=== PATIENT | male | born 1940 | race Caucasian/White ===

== ENCOUNTER 2024-04-11 13:53 | Outpatient (RCR) | payer MEDICARE, BC, SELFPAY ==
--- NOTE | 2024-04-16 22:52 | CTCFLWUP_ITS ---
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 Rooney received weekly Taxol and carboplatin as radiose nsitizing agents. 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 Rooney is allergic to MRI contrast. He had anaphylactic reaction in the past. REASON FOR TODAY?S VISIT: This is office follow-up visit. Mr. Rooney is here at [facility]. He is clinically doing very well. Denies any new complaints. Denies any cough , chest pain, abdominal pain or leg cramps. Currently he is on adjuvant durvalumab. Tolerating it v [facility] well without any significant side effects. Has good appetite and good energy levels. Ambulating well without any help. HISTORY OF PRESENT ILLNESS: Mr. Rooney has the following oncology history. September 2014: Mr. Rooney had excision biopsy of the lesion on the back of the chest wall on the right side . 01/2015: CT scan of the chest with IV contrast 02/05/2015: Radical reresection of the large (8 cm) right periscapular leiomyosarcoma. 03/18/2015 - 05/10/2015: Patient was treated with 7040 cGy radiation therapy to the right shoulder. 04/02/2016: Mr. Rooney had gastroscope and radial echo endoscopic study to evaluate compression of the prepyloric region. 11/04/2022: CT scan of the chest without IV contrast was obtained due to history of soft tissue sarcom a. 12/10/2022: Guided biopsy of the left lower lobe pulmonary mass? 01/18/2023?02/22/2023: Mr. Rooney is started on chemoradiation with weekly Taxol and carboplatin for sta ge IIIa disease. 03/23/2023: Mr. Rooney is started on adjuvant durvalumab. 05/26/2023: PET/CT scan 09/16/2023: PET/CT scan? PAST MEDICAL HISTORY: COPD Sarcoma right shoulder - Dx 2014 BPH PAST SURGICAL HISTORY: Septoplasty - 2014 Umbilical hernia repair - 2005 MEDICATIONS: 1. albuterol - 90 mcg/actuation As needed 2. multivitamin - 1 tab Daily 3. Trelegy Ellipta - 200-62.5-25 mcg 1 Puff(s) Daily 4. vitamin B complex - 1 tab Every other day 5. Vitamin C - 1,000 mg 1 tab Daily?Palabra Meds? Medications Last Reconciled by Jazzy Ordonez MA on 12/30/2023 ALLERGIES: Gadolinium-Containing Contrast Media; Gadolinium-Containing Contrast Media; Gadolinium-Con taining Contrast Media REVIEW OF SYSTEMS:?Clone ROS? Neurological: No headache, seizures or blurring of vision. Gastrointestinal: No nausea, vomiting, diarrhea or constipation. Cardiovascular: No palpitations or angina pains. Respiratory: No cough, chest pain or shortness of breath. PHYSICAL EXAMINATION:?ClonePE? VITAL SIGNS: Temperature?98.8, B/P?119/74, Oxygen?Saturation?96% Weight?159?lbs (Change?since?12/29/23: ?2.2?lbs) PAIN: 0 - No pain EYE: Conjunctivae is white MOUTH: Oral cavity is dry. CHEST: Clear to auscultation. No wheezes or rales audible. CARDIAC: Rhythm regular, no murmurs or gallops present. ABDOMEN: Soft. No hepatosplenomegaly. EXTREMITIES: No pedal edema or cyanosis. 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 History of right pe riscapular leiomyosarcoma (2014, s/p surgery and radiation therapy. S/p chemoradiation completed on . 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 Tolerating it very well without any significant side effects. CT scan of the neck with and without contrast done on 10/13/2023 did not show any enhancing oropharyng eal mass. Patient states that his PET CT scan showed a large hypermetabolic mass and at that time he was sent t o be seen by ENT . He was examined and no mass was found. Really subsequently his next CT scan wa s negative. He apparently took some gum which he thinks might have made his PET scan positive. 04/06/[address] scan shows stable hypermetabolic mass in the left oropharyngeal region Large cavitary partially hypermetabolic mass in the right upper lobe 52 mm compared to 28 mm and stab le 17 mm non-hypermetabolic cavitary mass left upper lobe Plan Refer to IR for biopsy PFT Refer to oral surgeon for examination to evaluate oropharyngeal mass Return to clinic after the biopsy results Will also get a brain MRI to complete staging 1. Electronically Signed by: {Object.Sanct_ID*PnP.NameFL@M}, {Object.Sanct_ID*PnP.Suffix@U} D: {Object.Sanct_Date} T: {Object.Sanct_Time} CC: PCP: Geovanna Samson Referring: Geovanna Samson This document was completed utilizing speech recognition software. Grammatical errors, random word in sertions, pronoun errors, and incomplete sentences are an occasional consequence of this system due t o software limitations, ambient noise, and hardware issues. Any formal questions or concerns about th e content, text or information contained within the body of this dictation should be directly address ed to the provider for clarification.
== END 2024-04-22 23:59 | disposition home or self-care (01) ==
LOC: SCTC 13:53
PROVIDERS: Referring Provider Internal Medicine Hematology & Oncology; Visit Provider Internal Medicine Hematology & Oncology
DX: C34.32 Malignant neoplasm of lower lobe, left bronchus or lung (principal); Z85.831 Personal history of malignant neoplasm of soft tissue; Z92.3 Personal history of irradiation
CPT/HCPCS: 99212; G0463

== ENCOUNTER 2024-04-26 07:39 | Outpatient (CLI) | payer MEDICARE, BC, SELFPAY ==
[2024-04-25 13:30] LABS: Basophils % (Auto) 0 % (0-2.5); Eosinophils # (Auto) 0.3 Thou/mm3 (0.0-0.5); Eosinophils % (Auto) 3 % (0-10); Hematocrit 39.9 % (41.0-53.0); Immature Granulocytes % (Auto) 1 % (0-0); Lymphocytes # (Auto) 1.5 Thou/mm3 (1.0-4.8); Lymphocytes % (Auto) 12 % (10-50); Mean Corpuscular HGB Conc 32.6 g/dl (31.0-37.0); Mean Corpuscular Hemoglobin 30.4 pg (25.0-35.0); Mean Corpuscular Volume 93 fL (80-100); Monocytes # (Auto) 1.3 Thou/mm3 (0.0-0.8); Monocytes % (Auto) 11 % (0-12); Neutrophils # (Auto) 9.2 Thou/mm3 (1.8-7.7); Neutrophils % (Auto) 74 % (37-80); Nucleated Red Blood Cell % 0 /100 WBC (0); Platelet Count 294 Thou/mm3 (140-440); RDW Standard Deviation 43.8 fL (35.1-43.9); Red Blood Count 4.28 Miln/mm3 (4.50-5.90); White Blood Count 12.5 Thou/mm3 (3.8-10.6)
[2024-04-25 13:37] LABS: Partial Thromboplastin Time 26.5 Seconds (22.0-36.0); Prothrombin Time 10.6 Seconds (9.0-12.2)
[2024-04-25 13:43] LABS: Blood Urea Nitrogen 15 mg/dL (9-23); Creatinine (Component) 1.2 mg/dL (0.6-1.3); eGFR > 60 See Note
[2024-04-26] VITALS (12 sets, daily range): BP systolic 103–130; BP diastolic 63–84; PULSE 90–114; RESP 13–22; TEMP 36.6–36.7; O2SAT 92–96
--- NOTE | 2024-04-26 | XR_ITS ---
Examination: AP chest single view Technique one AP semiupright portable chest single view Exam date and time: April 26, 2024 1146 hours INDICATIONS: Post lung biopsy today. FINDINGS: No pneumothorax post lung biopsy Parenchymal disease in the right lung with bilateral pulmonary nodules again noted IMPRESSION: No pneumothorax post lung biopsy
--- NOTE | 2024-04-26 08:30 | XR_ITS ---
Examination: CT-guided percutaneous biopsy cavitary lesion right upper lobe CT chest without intravenous contrast Date and time of procedure: April 26, 2024 10:16 AM INDICATIONS: Large cavitary mass in the right upper lobe and numerous bilateral pulmonary nodules on CT chest study today Informed consent provided. A timeout was completed verifying correct patient, procedure, site and positioning. Technique: Axial 3 mm sections were obtained for localization of the large cavitary mass right upper lobe Appropriate area is marked. The patient's site was prepped and draped in sterile fashion Maximal sterile barrier technique utilized, including hand hygiene Local anesthesia was obtained with 1% lidocaine. Low dose protocols were performed. One or more of the following dose reduction techniques were used; automated exposure control, adjustment of the mA and/or KV according to patient size, use of iterative reconstruction technique. Utilizing CT fluoroscopic guidance 7 core biopsies obtained of the cavitary mass in the right upper lobe, including 8 core placed in culture medium for culture and sensitivity Complete pathology report to follow. Impression: Successful CT-guided percutaneous biopsy cavitary mass right upper lobe
--- NOTE | 2024-04-26 09:51 | XR_ITS ---
Examination: CT chest, without intravenous contrast. Sagittal and coronal 2-D reconstructions. Exam date and time: April 26, 2024 0956 hours INDICATIONS: Cavitary lung lesion right upper lobe [address] scan April 06, 2024, diagnosis skin cancer CTDI:vol (mGy) 9.70 DLP: (mGycm) 363 Technique: Multiple 3.0 mm axial sections of the chest to been obtained. Bone and lung density settings are obtained. Sagittal and coronal 2-D reconstructions have been obtained. Low dose protocols were performed. One or more of the following dose reduction techniques were used; automated exposure control, adjustment of the mA and/or KV according to patient size, use of iterative reconstruction technique. Findings: Partially cavitary mass in the right upper lobe, at least 8 x 3 x 6.2 cm Extensive parenchymal scarring in the right lower lung zone Dilated bronchi in both lungs Numerous bilateral pulmonary nodules including cavitary nodule in the left midlung measuring 21 mm No visualized liver lesions Gallstones not seen Spleen not enlarged Kidneys partially visualized no hydronephrosis IMPRESSION: Multiple bilateral pulmonary masses, several cavitary, the largest in the right upper lobe 8 x 3 x 6.2 cm
[2024-04-26] MEDS: fentaNYL CIT INJ 50 mCg/ML AMP 2ML IV (10:49)
--- NOTE | 2024-04-26 11:10 | PC.NURSE ---
1110 patient is awake, alert, breathing unlabored, s/p right lung biopsy, dressing to right upper chest near axilla dry with no bleeding, report received from Devonte RIDDLE, patient to have chest xray now and second xray 1 hr post first chest xray.
--- NOTE | 2024-04-26 11:40 | PC.NURSE ---
1140 chest xray completed, order placed for second xray in 1hr
[2024-04-26 11:57] LABS: Cult AFB Sendout- Not Sputum* See Sep Rpt
--- NOTE | 2024-04-26 12:22 | PC.NURSE ---
No pneumothorax per Dr. Reddy, penny for patient to have diet tray that was ordered, pt does not want food at this time.
--- NOTE | 2024-04-26 12:40 | XR_ITS ---
Examination: AP chest single view Technique one AP upright portable chest single view Exam date and time: April 26, 2024 1247 hours INDICATIONS: Post lung biopsy today. FINDINGS: No pneumothorax post lung biopsy Bilateral pulmonary masses noted with parenchymal disease in the right mid and lower lung zone Normal heart size IMPRESSION: No pneumothorax post lung biopsy
--- NOTE | 2024-04-26 12:42 | PC.NURSE ---
second chest xray completed
--- NOTE | 2024-04-26 13:52 | PC.NURSE ---
1310 patient is awake, alert, breathing unlabored, dressing to right upper chest dry with no bleeding, discharge instructions given to patient and Angelia, meets discharge criteria, second chest xray ready by dr flores, no pneumothorax seen, ok to discharge patient home, patient discharged home in wheelchair with all belongings.
--- NOTE | 2024-04-26 13:57 | PC.NURSE ---
1300 Dr. Reddy read second xray, no pneumothorax seen on images, will get patient ready to go home
== END 2024-04-26 13:10 | disposition home or self-care (01) ==
PROVIDERS: Radiology Diagnostic Radiology; PCP Family Medicine; Referring Provider Internal Medicine Hematology & Oncology; Visit Provider Internal Medicine Hematology & Oncology
DX: J84.10 Pulmonary fibrosis, unspecified (principal); R91.8 Other nonspecific abnormal finding of lung field; C44 Other and unspecified malignant neoplasm of skin; C43.31 Malignant melanoma of nose; Z01.812 Encounter for preprocedural laboratory examination
CPT/HCPCS: 32408; 36415; 71250; 77012; 82565; 84520; 85025; 85610; 85730; 87070; 87075; 87102; 87116; 87205; 87206; J3010; J7050

== ENCOUNTER 2024-05-04 15:30 | Outpatient (RCR) | payer MEDICARE, BC, SELFPAY ==
--- NOTE | 2024-05-04 16:38 | CTCFLWUP_ITS ---
Patient: SLOAN ROONEY : 1940 Page 2 of 2 FOLLOW UP NOTE DATE OF SERVICE: 05/04/2024 NAME: SLOAN ROONEY ACCOUNT: [id number] : 1940 AGE: 83 REASON FOR VISIT: Follow-up INTERVAL HISTORY: Patient is here to follow-up on the history of squamous cell lung cancer. Patient's last PET CT scan was concerning for activity in the throat and distress ordered for biopsy. Patient is here to discu ss the biopsy results. Patient doing well there is no changes in his appetite or weight. No chronic cough weight loss or any concerning symptoms for recurrence of cancer. History of presenting illness Mr. Rooney has the following oncology history. September 2014: Mr. Rooney had excision biopsy of the lesion on the back of the chest wall on the right side . 01/2015: CT scan of the chest with IV contrast 02/05/2015: Radical reresection of the large (8 cm) right periscapular leiomyosarcoma. 03/18/2015 - 05/10/2015: Patient was treated with 7040 cGy radiation therapy to the right shoulder. 04/02/2016: Mr. Rooney had gastroscope and radial echo endoscopic study to evaluate compression of the prepyloric region. 11/04/2022: CT scan of the chest without IV contrast was obtained due to history of soft tissue sarcom a. 12/10/2022: Guided biopsy of the left lower lobe pulmonary mass? 01/18/2023?02/22/2023: Mr. Rooney is started on chemoradiation with weekly Taxol and carboplatin for sta ge IIIa disease. 03/23/2023: Mr. Rooney is started on adjuvant durvalumab. 05/26/2023: PET/CT scan 09/16/2023: PET/CT scan? 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 Rooney received weekly Taxol and carboplatin as radiose nsitizing agents. 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 Rooney is allergic to MRI contrast. He had anaphylactic reaction in the past. DATE OF DIAGNOSIS: STAGE/TNM: TREATMENT HISTORY: Care?Plan Start?Date Cycle Day Intent Taxol?45?mg/m*2?+?Carbo?AUC?2?+?Concurrent?XRT 01/18/2023 1 7 Definitive DURValomab?10mg/kg 03/23/2023 1 14 Curative?(adjuvant) OTHER MEDICAL HISTORY/CONDITIONS: COPD Sarcoma right shoulder - Dx 2014 BPH Septoplasty - 2014 Umbilical hernia repair - 2005 FAMILY HISTORY: Mother:?Thyroid?-?dx?60's Children:?Sister?-?Lung?-?80's SOCIAL HISTORY: Occupational?History:?Retired?- Education?Level:?College Graduate, 2 year degree Marital?Status:? Tobacco?Pack?per?Day:?1 Tobacco?Use?Years:?60 Tobacco?Use:?Quit?2?weeks?ago ETOH?Use:?Denies Drug?Note:?Denies Social?History?Note:?Lives?with? MEDICATIONS: 1. albuterol - 90 mcg/actuation As needed 2. multivitamin - 1 tab Daily 3. Trelegy Ellipta - 200-62.5-25 mcg 1 Puff(s) Daily 4. vitamin B complex - 1 tab Every other day 5. Vitamin C - 1,000 mg 1 tab Daily Medications Last Reconciled by Yoli Reich MD on 05/04/2024 ALLERGIES: Gadolinium-Containing Contrast Media; Gadolinium-Containing Contrast Media; Gadolinium-Con taining Contrast Media REVIEW OF SYSTEMS: A complete 14-point review of systems was performed and is negative except as noted in interval histo ry. PHYSICAL EXAMINATION: VITAL SIGNS: Temperature?99.8, B/P?131/73, Oxygen?Saturation?97% Weight?108?lbs (Change?since? 4:?-50?lbs) PAIN: 0 - No pain ECOG Performance Status: 0 - Asymptomatic and fully active EYE: Conjunctivae is white MOUTH: Oral cavity is moist CHEST: Clear to auscultation. No wheezes or rales audible. CARDIAC: Rhythm regular, no murmurs or gallops present. ABDOMEN: Soft. No hepatosplenomegaly. EXTREMITIES: No pedal edema or cyanosis. LABORATORY DATA: I have personally reviewed and interpreted each of the patient?s relevant lab tests, abnormal finding s are below: Date 04/25/24 ??WHITE?BLOOD?COUNT?(Thou/mm3) 12.5?H ??RED?BLOOD?COUNT?(Miln/mm3) 4.28?L ??HEMOGLOBIN?(gm/dl) 13.0?L ??HEMATOCRIT?(%) 39.9?L ??PLATELET?COUNT?(Thou/mm3) 294 ??NEUTROPHILS?%,?AUTO?(%) 74 ??LYMPH?%,?AUTO?(%) 12 ??NEUTROPHILS,?AUTO?(Thou/mm3) 9.2?H IMPRESSION/PLAN: #1 stage Illa (cT2b, N2, M0) squamous cell carcinoma of the right lung (12/10/2022). S/p S/p chemorad iation completed on 03/01/2023. Followed by durvalumab CT scan of the neck with and without contrast done on 10/13/2023 did not show any enhancing oropharyng eal mass. 04/06/[address] scan shows stable hypermetabolic mass in the left oropharyngeal region Large cavita ry partially hypermetabolic mass in the right upper lobe 52 mm compared to 28 mm and stable 17 mm non -hypermetabolic cavitary mass left upper lobe. Biopsy shows caseating granuloma and negative for tuberculosis and any fungal elements and malignancy This is likely from radiation associated changes Will check cocci titers and QuantiFERON RTC in 2 months Patient have oral surgeon appointment for evaluation of the mass in his throat. ORDERS: Cocci titers serum QuantiFERON ordered #2 history of right periscapular leiomyosarcoma (2014, s/p surgery and radiation therapy. Gastric GIS T (December 2015) No evidence of recurrence RETURN TO CLINIC: RTC in 4 weeks BILLING AND COMPLIANCE: I reviewed external records from providers outside my specialty as summarized above. I spent a total of 50 minutes on this patient?s care on the day of their visit excluding time spent related to any bi lled procedures. This time includes time spent with the patient as well as time spent documenting in the medical record, reviewing patients records and tests, obtaining history, placing orders, communi cating with other healthcare professionals, counseling the patient, family or caregiver, and/or care coordination for the diagnoses above. Electronically Signed by: Yonny Scott MD T: 4:36 PM CC: PCP: Geovanna Samson Referring: Geovanna Samson This document was completed utilizing speech recognition software. Grammatical errors, random word in sertions, pronoun errors, and incomplete sentences are an occasional consequence of this system due t o software limitations, ambient noise, and hardware issues. Any formal questions or concerns about th e content, text or information contained within the body of this dictation should be directly address ed to the provider for clarification.
== END 2024-05-23 23:59 | disposition home or self-care (01) ==
LOC: SCTC 15:30
PROVIDERS: PCP Family Medicine; Referring Provider Family Medicine; Visit Provider Internal Medicine Hematology & Oncology
DX: C34.32 Malignant neoplasm of lower lobe, left bronchus or lung (principal); Z85.831 Personal history of malignant neoplasm of soft tissue; Z92.3 Personal history of irradiation; Z85.028 Personal history of other malignant neoplasm of stomach
CPT/HCPCS: 99213; G0463

== ENCOUNTER → 2024-05-05 | Outpatient (CLI) | payer MEDICARE, BC, SELFPAY ==
[2024-05-05 14:05] LABS: Cocci Serology, IgM Negative (Negative)
[2024-05-06 14:10] LABS: Cocci Serology, IgG Negative (Negative)
== END | disposition home or self-care (01) ==
LOC: SCTO 11:50
PROVIDERS: PCP Family Medicine; Referring Provider Internal Medicine Hematology & Oncology; Visit Provider Internal Medicine Hematology & Oncology
DX: C44 Other and unspecified malignant neoplasm of skin (principal); C34.31 Malignant neoplasm of lower lobe, right bronchus or lung
CPT/HCPCS: 36415; 86331; 86635

== ENCOUNTER → 2024-05-12 | Outpatient (CLI) | payer MEDICARE, BC, SELFPAY | END | disposition home or self-care (01) | LOC: SMRI 12:48 | PROVIDERS: PCP Family Medicine; Referring Provider Internal Medicine Hematology & Oncology; Visit Provider Internal Medicine Hematology & Oncology | DX: Z53.8 Procedure and treatment not carried out for other reasons (principal) ==

== ENCOUNTER → 2024-05-16 | Outpatient (CLI) | payer MEDICARE, BC, SELFPAY ==
--- NOTE | 2024-05-16 15:30 | XR_ITS ---
Examination: MRI brain without intravenous contrast. Date and time of exam: May 16, 2024 at 1626 hrs. Indications: Diagnosis malignant neoplasm lung, restaging Technique: Multiple axial and sagittal images of the brain obtained. Siemens high-resolution 1.5 Izabel short bore scanners utilized. Sagittal sections, T1-weighted, TR 500, TE 14, are performed. Axial sections proton-density and T2-weighted have been obtained. Inversion recovery axial images, TR 9, 260, TE 111, TI 2500. Diffusion weighted images, axial sections, TR 4800, TE 128, B value 1000 Axial sections, ADC map, TR 4800, TE 128 Findings: Enlargement of the sella turcica is not present. The optic chiasm and infundibular are not remarkable. Prepontine and interpeduncular cisterns are not enlarged. There is no localized enlargement of the medulla or ventura. Fourth ventricle and cerebellar tonsils appear normal in position. No subacute area of hemorrhage density is seen. Mass in the cerebellopontine angle region is not evident. Globes symmetrical. Orbital musculature including medial lateral rectus muscles do not exhibit abnormality. Diffusion-weighted images demonstrate no focus of restricted diffusion. Increased white matter signal moderate Right mastoiditis Mass effect upon the ventricular system is not identified. Impression: No focal cerebellar or cerebral metastatic lesion noted
== END | disposition home or self-care (01) ==
LOC: SMRI 14:58
PROVIDERS: PCP Family Medicine; Referring Provider Internal Medicine Hematology & Oncology; Visit Provider Internal Medicine Hematology & Oncology
DX: C44 Other and unspecified malignant neoplasm of skin (principal); C34.31 Malignant neoplasm of lower lobe, right bronchus or lung
CPT/HCPCS: 70551

== ENCOUNTER 2024-07-19 14:21 | Outpatient (RCR) | payer MEDICARE, SELFPAY ==
[2024-07-19 15:42] LABS: Basophils % (Auto) 0 % (0-2.5); Eosinophils # (Auto) 0.4 Thou/mm3 (0.0-0.5); Eosinophils % (Auto) 4 % (0-10); Hematocrit 36.2 % (41.0-53.0); Hemoglobin 11.8 g/dL (13.5-16.0); Immature Granulocytes % (Auto) 0 % (0-0); Immature Granulocytes Auto 0.04 Thou/mm3 (0.00-0.00); Lymphocytes # (Auto) 1.1 Thou/mm3 (1.0-4.8); Lymphocytes % (Auto) 11 % (10-50); Mean Corpuscular HGB Conc 32.6 g/dl (31.0-37.0); Mean Corpuscular Hemoglobin 29.1 pg (25.0-35.0); Mean Corpuscular Volume 89 fL (80-100); Monocytes # (Auto) 1.1 Thou/mm3 (0.0-0.8); Monocytes % (Auto) 11 % (0-12); Neutrophils # (Auto) 6.9 Thou/mm3 (1.8-7.7); Neutrophils % (Auto) 73 % (37-80); Nucleated Red Blood Cell % 0 /100 WBC (0); Platelet Count 268 Thou/mm3 (140-440); RDW Standard Deviation 44.9 fL (35.1-43.9); Red Blood Count 4.06 Miln/mm3 (4.50-5.90); White Blood Count 9.5 Thou/mm3 (3.8-10.6)
[2024-07-19 16:03] LABS: Alanine Aminotransferase 9 U/L (10-49); Albumin, Serum 4.1 gm/dL (3.4-4.8); Albumin/Globulin Ratio 1.4 (1.2-2.2); Alkaline Phosphatase 93 U/L (46-116); Anion Gap 8 (7-16); Aspartate Amino Transferase 15 U/L (0-34); BUN/Creatinine Ratio 12 Ratio (12-20); Bilirubin,Total 0.4 mg/dL (0.3-1.2); Blood Urea Nitrogen 12 mg/dL (9-23); Calcium 9.5 mg/dL (8.3-10.6); Calcium (Corrected) 9.5 mg/dL (8.5-10.1); Carbon Dioxide 26.7 mMol/L (20.0-31.0); Chloride 105 mMol/L (98-107); Globulin 2.9 gm/dL (2.3-3.5); Glucose 104 mg/dL (74-106); Osmolality,Calculated 279 (275-295); Potassium 3.9 mMol/L (3.4-5.1); Sodium 140 mMol/L (136-145); eGFR > 60 See Note
== END 2024-07-21 23:59 | disposition home or self-care (01) ==
LOC: SCTC 14:21
PROVIDERS: Internal Medicine Hematology & Oncology; PCP Family Medicine; Referring Provider Family Medicine; Visit Provider Radiology Therapeutic Radiology
DX: C34.32 Malignant neoplasm of lower lobe, left bronchus or lung (principal); R22.1 Localized swelling, mass and lump, neck; Z85.831 Personal history of malignant neoplasm of soft tissue; Z92.3 Personal history of irradiation; Z92.21 Personal history of antineoplastic chemotherapy
CPT/HCPCS: 36591; 80053; 85025; 99212; A4216; J1642; G0463

== ENCOUNTER → 2024-07-20 | Outpatient (CLI) | payer MEDICARE, BC, SELFPAY ==
--- NOTE | 2024-07-20 14:00 | XR_ITS ---
Examination: CT chest with intravenous contrast 2-D sagittal and coronal reconstructions Exam date and time: July 20, 2024 1444 hrs. Indications: Lung carcinoma diagnosis 2 years ago, cavitary mass right upper lobe 8.3 x 6.[address] chest April 26, 2024 restaging CTDI:vol (mGy) 8.52 DLP: (mGycm) : 15 Technique: Multiple axial sections of the thorax have been obtained. Sections have been obtained, 3 mm slice thickness. Mediastinal and lung density settings have been obtained. Intravenous contrast administered, 60 cc Isovue-370 . 2-D sagittal, coronal images obtained. Low dose protocols were performed. One or more of the following dose reduction techniques were used; automated exposure control, adjustment of the mA and/or KV according to patient size, use of iterative reconstruction technique. Findings: No thoracic aortic aneurysmal dilatation No pulmonary artery emboli Small lymph nodes in the precarinal region COPD Significant cavitary lesion right upper lobe, 5.7 cm compared to 6.2 cm on the prior study Larger sagittal 0, 18 mm compared to 9 mm New satellite pulmonary nodules in the right upper lobe 20 mm mass in the left upper lobe is now cavitary Pulmonary fibrosis especially in the right lung moderately severe Gallstones No solid liver lesions No pancreatic mass Impression: Progression of metastatic pulmonary nodular disease in the right upper lobe compared to April 26, 2024
== END | disposition home or self-care (01) ==
LOC: CCTX 13:59
PROVIDERS: PCP Family Medicine; Referring Provider Internal Medicine Hematology & Oncology; Visit Provider Internal Medicine Hematology & Oncology
DX: C78.01 Secondary malignant neoplasm of right lung (principal); C44 Other and unspecified malignant neoplasm of skin; C34.31 Malignant neoplasm of lower lobe, right bronchus or lung
CPT/HCPCS: 71260; A4649; Q9967

== ENCOUNTER 2024-07-27 15:00 | Outpatient (RCR) | payer MEDICARE, BC, SELFPAY ==
--- NOTE | 2024-07-27 16:18 | CTCFLWUP_ITS ---
[facility] [address] [place], [place] [address] FOLLOW-UP NOTE Date: 07/27/2024 MR#: [id number] Name: SLOAN ROONEY : 1940 Dx: C44.691 Other specified malignant neoplasm of skin of unspecified upper limb, including shoulder C34.31 Malignant neoplasm of right lower lobe. Patient with stage IIIa squamous is he had a right lung biopsy 12/28/2022 Underwent chemoradiation 01/18/2023 to 03/01/2023 receiving weekly Taxol carboplatin and 5800 cGy to the right chest. followed by durvalumab. PET scan 04/06/2024 showed stable mass left oropharyngeal region with larger cavitary partially hypermetabolic mass in the right upper lobe and stable 17 mm non-hypermetabolic cavitary mass left upper lobe. CT-guided needle biopsy of the right lung lesion 04/26/2024 was negative for malignancy..This revealed caseating granulomas inflammation negative for malignancy. Cocci titers negative and TB test reportedly was normal as well. Also patient went to [place] and had ENT exam to evaluate the oropharyngeal region and surrounding area and fungal infection was reported and treated but no malignancy. Most recent CT 07/20/2024 showed progression of pulmonary nodules right upper lobe compared to 04/26/2024. Reviewed the films with Dr. Aldridge who feels that either the 18 mm lesion order larger cavitary lesion right upper lobe can be biopsied to rule out active malignancy. This will now be ordered. Has follow-up with Dr. Scott next month. Electronically signed by: Rogelio Peralta M.D. 07/27/2024 4:16 PM
== END 2024-08-21 23:59 | disposition home or self-care (01) ==
LOC: SCTC 15:00
PROVIDERS: PCP Family Medicine; Referring Provider Family Medicine; Visit Provider Radiology Therapeutic Radiology
DX: C34.32 Malignant neoplasm of lower lobe, left bronchus or lung (principal); J84.10 Pulmonary fibrosis, unspecified; R91.8 Other nonspecific abnormal finding of lung field; Z85.831 Personal history of malignant neoplasm of soft tissue; Z92.3 Personal history of irradiation; Z92.21 Personal history of antineoplastic chemotherapy
CPT/HCPCS: 99213; G0463

== ENCOUNTER 2024-09-15 09:30 | Outpatient (RCR) | payer MEDICARE, BC, SELFPAY ==
[2024-09-15 11:03] LABS: Basophils % (Auto) 0 % (0-2.5); Eosinophils # (Auto) 0.3 Thou/mm3 (0.0-0.5); Eosinophils % (Auto) 2 % (0-10); Hematocrit 37.6 % (41.0-53.0); Hemoglobin 12.5 g/dL (13.5-16.0); Immature Granulocytes % (Auto) 1 % (0-0); Immature Granulocytes Auto 0.09 Thou/mm3 (0.00-0.00); Lymphocytes # (Auto) 1.4 Thou/mm3 (1.0-4.8); Lymphocytes % (Auto) 11 % (10-50); Mean Corpuscular HGB Conc 33.2 g/dl (31.0-37.0); Mean Corpuscular Hemoglobin 29.8 pg (25.0-35.0); Mean Corpuscular Volume 90 fL (80-100); Monocytes # (Auto) 1.3 Thou/mm3 (0.0-0.8); Monocytes % (Auto) 10 % (0-12); Neutrophils % (Auto) 76 % (37-80); Nucleated Red Blood Cell % 0 /100 WBC (0); Platelet Count 256 Thou/mm3 (140-440); RDW Standard Deviation 47.5 fL (35.1-43.9); Red Blood Count 4.19 Miln/mm3 (4.50-5.90); White Blood Count 13.1 Thou/mm3 (3.8-10.6)
[2024-09-15 11:17] LABS: Partial Thromboplastin Time 29.1 Seconds (22.0-36.0); Prothrombin Time 10.6 Seconds (9.0-12.2)
[2024-09-15 11:37] LABS: Alanine Aminotransferase 9 U/L (10-49); Albumin/Globulin Ratio 1.7 (1.2-2.2); Alkaline Phosphatase 82 U/L (46-116); Anion Gap 8 (7-16); Aspartate Amino Transferase 10 U/L (0-34); BUN/Creatinine Ratio 13 Ratio (12-20); Bilirubin,Total 0.3 mg/dL (0.3-1.2); Blood Urea Nitrogen 14 mg/dL (9-23); Calcium 9.1 mg/dL (8.3-10.6); Calcium (Corrected) 9.1 mg/dL (8.5-10.1); Carbon Dioxide 30.2 mMol/L (20.0-31.0); Chloride 107 mMol/L (98-107); Creatinine (Component) 1.1 mg/dL (0.6-1.3); Globulin 2.3 gm/dL (2.3-3.5); Glucose 111 mg/dL (74-106); Osmolality,Calculated 290 (275-295); Potassium 3.2 mMol/L (3.4-5.1); Sodium 145 mMol/L (136-145); Total Protein 6.3 gm/dL (5.7-8.2); eGFR > 60 See Note
== END 2024-09-20 23:59 | disposition home or self-care (01) ==
LOC: SCTC 09:30
PROVIDERS: Referring Provider Internal Medicine Hematology & Oncology; Visit Provider Internal Medicine Hematology & Oncology
DX: C34.32 Malignant neoplasm of lower lobe, left bronchus or lung (principal); R91.8 Other nonspecific abnormal finding of lung field; Z85.831 Personal history of malignant neoplasm of soft tissue; Z92.21 Personal history of antineoplastic chemotherapy
CPT/HCPCS: 36591; 80053; 85025; 85610; 85730; A4216; J1642

== ENCOUNTER 2024-09-18 08:36 | Outpatient (CLI) | payer MEDICARE, BC, SELFPAY ==
[2024-09-14 10:33] VITALS: BMI 23.2
[2024-09-18] VITALS (12 sets, daily range): BP systolic 104–144; BP diastolic 63–81; PULSE 81–98; RESP 14–22; TEMP 36.6–37; O2SAT 96–98
[2024-09-18] MEDS: SODIUM CHLORIDE 0.9% 500 ML 500 ML 20 ML IV (09:30)
--- NOTE | 2024-09-18 09:30 | XR_ITS ---
Examination: CT guided percutaneous biopsy cavitary mass right lung CT thorax without intravenous contrast Date and time of procedure: September 10, 2024 0925 hours INDICATIONS: Lung carcinoma diagnosis 2 years ago with enlarging cavitary mass in the right upper lobe Informed consent provided. A timeout was completed verifying correct patient, procedure, site and positioning. Technique: Axial 3 mm sections were obtained for localization of the lung abnormality. Appropriate area is marked. The patient's site was prepped and draped in sterile fashion Maximal sterile barrier technique utilized, including hand hygiene Local anesthesia was obtained with 1% lidocaine. Low dose protocols were performed. One or more of the following dose reduction techniques were used; automated exposure control, adjustment of the mA and/or KV according to patient size, use of iterative reconstruction technique. Utilizing CT fluoroscopic guidance 3 core biopsies obtained of the cavitary mass in the right upper lobe Patient appears in stable condition during this procedure. At completion of the procedure, the patient is in satisfactory condition. Estimated blood loss 4 cc Complete pathology report to follow. Impression: Successful CT-guided percutaneous biopsy cavitary mass right upper lobe
[2024-09-18] MEDS: fentaNYL CIT INJ 50 mCg/ML AMP 2ML IVP (09:47)
--- NOTE | 2024-09-18 10:12 | XR_ITS ---
Examination: AP chest single view Technique one AP upright portable chest single view Exam date and time: September 18, 2024 10:23 AM Comparison April 26, 2024 INDICATIONS: Post lung biopsy. FINDINGS: Extensive bilateral parenchymal disease including cavitary masses bilaterally Prominent right hilum No pneumothorax Right Port-A-Cath tip SVC IMPRESSION: No pneumothorax post lung biopsy today
--- NOTE | 2024-09-18 10:41 | PC.NURSE ---
1004 patient is awake, alert, breathing unlabored, s/p right lung biopsy, dressing dry with no bleeding, report received from Sofia RIDDLE, stat xray order now and second xray order in 1hr. 1019 chest xray #1 completed 1035 chest Xray #[address] Reddy, no pneumothorax seen, second xray order for 1120
--- NOTE | 2024-09-18 11:20 | XR_ITS ---
Examination: AP chest single view Technique one AP portable upright chest single view Exam date and time: September 10, 2024 1129 hours INDICATIONS: Post biopsy cavitary mass right upper lobe today FINDINGS: No pneumothorax post biopsy pulmonary mass right lung today Extensive bilateral parenchymal disease Port-A-Cath line satisfactory position IMPRESSION: No pneumothorax post biopsy
--- NOTE | 2024-09-18 17:25 | PC.NURSE ---
1125 second chest xray completed 1141 second xray reviewed by dr flores, ok to discharge patient home, will get patient ready to go home 1155 patient is awake, alert, breathing unlabored, dressing dry with no bleeding, discharge instructions given to patient and , patient discharged home in wheelchair with all belongings. patient ambulated to bathroom and voided prior to discharge.
== END 2024-09-18 11:55 | disposition home or self-care (01) ==
PROVIDERS: PCP Family Medicine; Referring Provider Radiology Therapeutic Radiology; Visit Provider Radiology Therapeutic Radiology
DX: R91.8 Other nonspecific abnormal finding of lung field (principal); C44 Other and unspecified malignant neoplasm of skin; C34.31 Malignant neoplasm of lower lobe, right bronchus or lung
CPT/HCPCS: 32408; 77012; 82565; 84520; 85025; 85610; 85730; J3010; J7040

== ENCOUNTER 2024-10-12 13:00 | Outpatient (RCR) | payer MEDICARE, BC, SELFPAY ==
--- NOTE | 2024-09-27 12:50 | CTCFLWUP_ITS ---
Patient: SLOAN ROONEY : 1940 Page 2 of 2 FOLLOW UP NOTE DATE OF SERVICE: 09/26/2024 NAME: SLOAN ROONEY ACCOUNT: [id number] : 1940 AGE: 83 INTERVAL HISTORY: Jelani Anderson, a patient with lung carcinoma, presented for follow-up after an inconclusive biopsy. 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 Imaging showed a decreased right upper lobe lesion (5.7cm), increased sagittal lesion (18mm), and a cavitary left upper lobe lesion. Despite recommendations, he continues smoking 4-5 cigarettes daily with a 65-year history. Laboratory results revealed hypokalemia (3.2 mEq/L). Management included ordering Shaq testing, planning for possible biopsy at [facility], considering repeat PET scan, retesting for tuberculosis and coccidioidomycosis, and recommending potassium supplementation. Chief Complaint Follow-up for inconclusive biopsy results, ongoing evaluation of lung lesions History of Present Illness Mr. Jelani Anderson, a patient with a history of lung carcinoma diagnosed two years ago, presents for follow-up regarding a recent inconclusive biopsy and ongoing lung lesions. The patient has a complex history of lung cancer, with previous diagnoses of leiomyosarcoma in 2014 and squamous cell cancer in 2022. The patient's right upper lobe lesion has decreased from 6.2 to 5.7 cm, while a sagittal lesion has increased from 9 to 18 mm. A left upper lobe lesion has become cavitary. Mr. Rooney recently underwent a biopsy on 09-18-2024, which was inconclusive. He expresses frustration about the recent biopsy, stating that the physician missed the spot. Mr. Rooney continues to smoke 4-5 cigarettes daily, despite recommendations to quit. He reports a 65-year history of smoking, acknowledging that tobacco use was widely accepted when he was younger. The patient's long-term smoking habit has resulted in severe lung damage. Medical History - Lung carcinoma diagnosed two years ago - Cavitary mass in the right upper lobe identified in April 2024 - Squamous cell cancer diagnosed in 2022 - Leiomyosarcoma diagnosed in 2014 Surgical History - Biopsy in 2022 for squamous cell cancer - Biopsy in 2014 for leiomyosarcoma - Recent biopsy (September 18, 2024) with inconclusive results Medications and Supplements - Potassium - Low potassium level of 3.2 noted. Social History - Substance Use: Current smoker (4-5 cigarettes per day), long-term smoking habit for 65 years Laboratory, Imaging, and Diagnostic Test Results - CT scan (11/17/2024): Significant cavitary lesions - CT scan (date not specified): - Right upper lobe lesion: 5.7 cm (decreased from 6.2 cm) - Sagittal lesion: 18 mm (increased from 9 mm) - Left upper lobe lesion: Now cavitary - PET scan (date not specified): - Large cavitary right upper lobe lesion - Stable 17 mm lesion in the left upper lobe - Pathology (09/18/2024): Inconclusive - Hemoglobin: 12.5 g/dL - Potassium: 3.2 mEq/L (low) History of presenting illness Mr. Rooney has the following oncology history. September 2014: Mr. Rooney had excision biopsy of the lesion on the back of the chest wall on the right side. 01/2015: CT scan of the chest with IV contrast 02/05/2015: Radical reresection of the large (8 cm) right periscapular leiomyosarcoma. 03/18/2015 - 05/10/2015: Patient was treated with 7040 cGy radiation therapy to the right shoulder. 04/02/2016: Mr. Rooney had gastroscope and radial echo endoscopic study to evaluate compression of the prepyloric region. 11/04/2022: CT scan of the chest without IV contrast was obtained due to history of soft tissue sarcoma. 12/10/2022: Guided biopsy of the left lower lobe pulmonary mass? 01/18/2023?02/22/2023: Mr. Rooney is started on chemoradiation with weekly Taxol and carboplatin for stage IIIa disease. 03/23/2023: Mr. Rooney is started on adjuvant durvalumab. 05/26/2023: PET/CT scan 09/16/2023: PET/CT scan? 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 Rooney received weekly Taxol and carboplatin as radiosensitizing agents. 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 Rooney is allergic to MRI contrast. He had anaphylactic reaction in the past. DATE OF DIAGNOSIS: STAGE/TNM: TREATMENT HISTORY: Care?Plan Start?Date Cycle Day Intent Taxol?45?mg/m*2?+?Carbo?AUC?2?+?Concurrent?XRT 01/18/2023 1 7 Definitive DURValomab?10mg/kg 03/23/2023 1 14 Curative?(adjuvant) HISTORY OF PRESENT ILLNESS: OTHER MEDICAL HISTORY/CONDITIONS: COPD Sarcoma right shoulder - Dx 2014 BPH Septoplasty - 2014 Umbilical hernia repair - 2005 FAMILY HISTORY: Mother:?Thyroid?-?dx?60's Children:?Sister?-?Lung?-?80's SOCIAL HISTORY: Occupational?History:?Retired?- Education?Level:?College Graduate, 2 year degree Marital?Status:? Tobacco?Pack?per?Day:?1 Tobacco?Use?Years:?60 Tobacco?Use:?Quit?2?weeks?ago ETOH?Use:?Denies Drug?Note:?Denies Social?History?Note:?Lives?with? MEDICATIONS: 1. albuterol - 90 mcg/actuation As needed 2. multivitamin - 1 tab Daily 3. potassium chloride - 10 mEq 1 tab Daily 4. Trelegy Ellipta - 200-62.5-25 mcg 1 Puff(s) Daily 5. vitamin B complex - 1 tab Every other day 6. Vitamin C - 1,000 mg 1 tab Daily Medications Last Reconciled by Codi Powell MA on 09/26/2024 ALLERGIES: Gadolinium-Containing Contrast Media; Gadolinium-Containing Contrast Media; Gadolinium-Containing Contrast Media REVIEW OF SYSTEMS: A complete 14-point review of systems was performed and is negative except as noted in interval history. PHYSICAL EXAMINATION: VITAL SIGNS: Temperature?98.9, B/P?129/74, Oxygen?Saturation?98% Weight?155?lbs (Change?since?09/15/24:?-2.2?lbs) PAIN: 0 - No pain ECOG Performance Status: 0 - Asymptomatic and fully active EYE: Conjunctivae is white MOUTH: Oral cavity is moist CHEST: Clear to auscultation. No wheezes or rales audible. CARDIAC: Rhythm regular, no murmurs or gallops present. ABDOMEN: Soft. No hepatosplenomegaly. EXTREMITIES: No pedal edema or cyanosis. LABORATORY DATA: I have personally reviewed and interpreted each of the patient?s relevant lab tests, abnormal findings are below: Date 07/19/24 09/15/24 ??WHITE?BLOOD?COUNT?(Thou/mm3) 9.5 13.1?H ??RED?BLOOD?COUNT?(Miln/mm3) 4.06?L 4.19?L ??HEMOGLOBIN?(gm/dl) 11.8?L 12.5?L ??HEMATOCRIT?(%) 36.2?L 37.6?L ??PLATELET?COUNT?(Thou/mm3) 268 256 ??NEUTROPHILS?%,?AUTO?(%) 73 76 ??LYMPH?%,?AUTO?(%) 11 11 ??NEUTROPHILS,?AUTO?(Thou/mm3) 6.9 10.0?H ??GLUCOSE,RANDOM?(mg/dL) 104 111?H ??BLOOD?UREA?NITROGEN?(mg/dL) 12 14 ??CREATININE?(mg/dL) 1.00 1.10 ??SODIUM?(mmol/L) 140 145 ??POTASSIUM?(mmol/L) 3.9 3.2?L ??CHLORIDE?(mmol/L) 105 107 ??CrCl?(CandG)?(ml/min) 56.94 53.12 ??AST/SGOT?(Unit/L) 15 10 ??ALT/SGPT?(Unit/L) 9?L 9?L ??ALKALINE?PHOSPHATASE?(Unit/L) 93 82 ??BILIRUBIN,?TOTAL?(mg/dL) 0.4 0.3 ??PROTEIN?TOTAL?(gm/dl) 7.0 6.3 ??ALBUMIN,?SERUM?(gm/dl) 4.1 4.0 ??GLOBULIN?(gm/dl) 2.9 2.3 ??ALBUMIN/GLOBULIN?RATIO 1.4 1.7 ??CALCIUM,?SERUM?(mg/dL) 9.5 9.1 ??CALCIUM?SERUM?(CORRECTED)?(mg/dL) 9.5 9.1 ASSESSMENT/PLAN: #1 stage Illa (cT2b, N2, M0) squamous cell carcinoma of the right lung (12/10/2022). S/p S/p chemoradiation completed on 03/01/2023. Followed by durvalumab CT scan of the neck with and without contrast done on 10/13/2023 did not show any enhancing oropharyngeal mass. 04/06/[address] scan shows stable hypermetabolic mass in the left oropharyngeal region Large cavitary partially hypermetabolic mass in the right upper lobe 52 mm compared to 28 mm and stable 17 mm non-hypermetabolic cavitary mass left upper lobe. Biopsy shows caseating granuloma and negative for tuberculosis and any fungal elements and malignancy Mr. Rooney, a long-term smoker with a history of lung carcinoma diagnosed two years ago, presents for follow-up after an inconclusive biopsy of a right upper lobe lesion. Lung Mass Assessment: Patient has a history of lung carcinoma diagnosed two years ago. Recent imaging shows a right upper lobe lesion that decreased from 6.2 to 5.7 cm, a sagittal lesion that increased from 9 to 18 mm, and a left upper lobe lesion that is now cavitary. A biopsy performed on 09-18-2024 was inconclusive. Patient has a history of leiomyosarcoma (2014) and squamous cell cancer (2022). The most recent PET scan showed a large cavitary right upper lobe lesion and a stable 17 mm lesion in the left upper lobe. Given the inconclusive biopsy and the patient's history, further diagnostic workup is necessary to determine the nature of these lesions. Plan: - Order Shaq testing - Results expected in 2-3 weeks - Schedule biopsy at [facility] for left lobe lesion and central lesion if Shaq results indicate need - Consider repeat PET scan - Retest for tuberculosis and coccidioidomycosis Tobacco Use Disorder Assessment: Patient reports current tobacco use of 4-5 cigarettes per day. Long- term smoking history of 65 years has resulted in severe lung damage. Continued smoking poses significant risks, especially in the context of ongoing diagnostic procedures for lung lesions. Plan: - Strongly advise smoking cessation - Educate on the importance of avoiding smoking, especially during biopsy procedures Hypokalemia Assessment: Recent laboratory results show low potassium at 3.2. Plan: - Recommend potassium supplementation through diet or tabletsORDERS: Order # Description RETURN TO CLINIC: 3 weeks BILLING AND COMPLIANCE: I reviewed external records from providers outside my specialty as summarized above. I spent a total of 50 minutes on this patient?s care on the day of their visit excluding time spent related to any billed procedures. This time includes time spent with the patient as well as time spent documenting in the medical record, reviewing patients records and tests, obtaining history, placing orders, communicating with other healthcare professionals, counseling the patient, family or caregiver, and/or care coordination for the diagnoses above. Electronically Signed by: Yonny Scott MD T: 12:48 PM CC: PCP: Geovanna Samson Referring: Geovanna Samson This document was completed utilizing speech recognition software. Grammatical errors, random word insertions, pronoun errors, and incomplete sentences are an occasional consequence of this system due to software limitations, ambient noise, and hardware issues. Any formal questions or concerns about the content, text or information contained within the body of this dictation should be directly addressed to the provider for clarification.
== END 2024-10-21 23:59 | disposition home or self-care (01) ==
LOC: SCTC 13:00
PROVIDERS: PCP Family Medicine; Referring Provider Family Medicine; Visit Provider Internal Medicine Hematology & Oncology
DX: R91.8 Other nonspecific abnormal finding of lung field (principal); Z71.2 Person consulting for explanation of examination or test findings; C34.31 Malignant neoplasm of lower lobe, right bronchus or lung; E87.6 Hypokalemia; F17.210 Nicotine dependence, cigarettes, uncomplicated; Z71.6 Tobacco abuse counseling; Z85.831 Personal history of malignant neoplasm of soft tissue; Z92.3 Personal history of irradiation; Z92.21 Personal history of antineoplastic chemotherapy
CPT/HCPCS: 36591; 99212; A4216; J1642; G0463

== ENCOUNTER → 2024-11-10 | Outpatient (CLI) | payer MEDICARE, BC, SELFPAY ==
[2024-11-10 11:18] LABS: Basophils # (Auto) 0.1 Thou/mm3 (0.0-0.2); Basophils % (Auto) 1 % (0-2.5); Eosinophils # (Auto) 0.4 Thou/mm3 (0.0-0.5); Eosinophils % (Auto) 5 % (0-10); Hematocrit 39.8 % (41.0-53.0); Hemoglobin 13.1 g/dL (13.5-16.0); Immature Granulocytes % (Auto) 1 % (0-0); Lymphocytes # (Auto) 1.4 Thou/mm3 (1.0-4.8); Lymphocytes % (Auto) 15 % (10-50); Mean Corpuscular HGB Conc 32.9 g/dl (31.0-37.0); Mean Corpuscular Hemoglobin 30.3 pg (25.0-35.0); Mean Corpuscular Volume 92 fL (80-100); Monocytes # (Auto) 0.9 Thou/mm3 (0.0-0.8); Monocytes % (Auto) 11 % (0-12); Neutrophils # (Auto) 6.1 Thou/mm3 (1.8-7.7); Neutrophils % (Auto) 68 % (37-80); Nucleated Red Blood Cell % 0 /100 WBC (0); Platelet Count 295 Thou/mm3 (140-440); RDW Standard Deviation 44.6 fL (35.1-43.9); Red Blood Count 4.33 Miln/mm3 (4.50-5.90)
[2024-11-10 11:23] LABS: Prothrombin Time 10.9 Seconds (9.0-12.2)
== END | disposition home or self-care (01) ==
LOC: COPL 10:08 → SCTO 10:20
PROVIDERS: PCP Family Medicine; Referring Provider Internal Medicine Hematology & Oncology; Visit Provider Internal Medicine Hematology & Oncology
DX: C44 Other and unspecified malignant neoplasm of skin (principal); C34.31 Malignant neoplasm of lower lobe, right bronchus or lung
CPT/HCPCS: 36415; 85025; 85610

== ENCOUNTER → 2025-01-03 | Outpatient (CLI) | payer MEDICARE, BC, SELFPAY ==
[2025-01-03 10:23] LABS: Quantiferon-TB* See Sep Rpt
[2025-01-03 10:41] LABS: Basophils # (Auto) 0.0 Thou/mm3 (0.0-0.2); Basophils % (Auto) 0 % (0-2.5); Eosinophils # (Auto) 0.2 Thou/mm3 (0.0-0.5); Eosinophils % (Auto) 1 % (0-10); Hematocrit 40.2 % (41.0-53.0); Hemoglobin 13.1 g/dL (13.5-16.0); Immature Granulocytes Auto 0.14 Thou/mm3 (0.00-0.00); Lymphocytes # (Auto) 0.8 Thou/mm3 (1.0-4.8); Lymphocytes % (Auto) 6 % (10-50); Mean Corpuscular HGB Conc 32.6 g/dl (31.0-37.0); Mean Corpuscular Hemoglobin 29.8 pg (25.0-35.0); Mean Corpuscular Volume 92 fL (80-100); Monocytes # (Auto) 0.7 Thou/mm3 (0.0-0.8); Monocytes % (Auto) 5 % (0-12); Neutrophils # (Auto) 11.5 Thou/mm3 (1.8-7.7); Neutrophils % (Auto) 86 % (37-80); Nucleated Red Blood Cell # 0.00 Thou/mm3 (0.00-0.00); Nucleated Red Blood Cell % 0 /100 WBC (0); Platelet Count 289 Thou/mm3 (140-440); RDW Standard Deviation 46.7 fL (35.1-43.9); Red Blood Count 4.39 Miln/mm3 (4.50-5.90); White Blood Count 13.3 Thou/mm3 (3.8-10.6)
[2025-01-03 11:13] LABS: Alanine Aminotransferase < 7 U/L (10-49); Albumin, Serum 4.1 gm/dL (3.4-4.8); Albumin/Globulin Ratio 1.6 (1.2-2.2); Alkaline Phosphatase 111 U/L (46-116); Anion Gap 4 (7-16); Aspartate Amino Transferase 13 U/L (0-34); BUN/Creatinine Ratio 9 Ratio (12-20); Bilirubin,Total 0.7 mg/dL (0.3-1.2); Blood Urea Nitrogen 10 mg/dL (9-23); Calcium 9.9 mg/dL (8.3-10.6); Calcium (Corrected) 9.9 mg/dL (8.5-10.1); Carbon Dioxide 33.6 mMol/L (20.0-31.0); Chloride 103 mMol/L (98-107); Creatinine (Component) 1.1 mg/dL (0.6-1.3); Globulin 2.6 gm/dL (2.3-3.5); Glucose 115 mg/dL (74-106); Osmolality,Calculated 281 (275-295); Potassium 4.0 mMol/L (3.4-5.1); Sodium 141 mMol/L (136-145); Total Protein 6.7 gm/dL (5.7-8.2); eGFR > 60 See Note
[2025-01-03 12:44] LABS: Cocci Serology, IgM Negative (Negative)
[2025-01-05 15:11] LABS: Cocci Serology, IgG Negative (Negative)
== END | disposition home or self-care (01) ==
PROVIDERS: PCP Family Medicine; Referring Provider Internal Medicine Hematology & Oncology; Visit Provider Internal Medicine Hematology & Oncology
DX: C44 Other and unspecified malignant neoplasm of skin (principal); C34.31 Malignant neoplasm of lower lobe, right bronchus or lung
CPT/HCPCS: 36415; 80053; 85025; 86331; 86480; 86635

== ENCOUNTER 2025-01-04 14:19 | Outpatient (RCR) | payer MEDICARE, BC, SELFPAY ==
--- NOTE | 2025-01-08 13:36 | CTCFLWUP_ITS ---
Patient: SLOAN ROONEY : 1940 Page 2 of 2 FOLLOW UP NOTE DATE OF SERVICE: 01/04/2025 NAME: SLOAN ROONEY ACCOUNT: [id number] : 1940 AGE: 84 INTERVAL HISTORY: Jelani Anderson, a patient with lung carcinoma, presented for follow-up after an inconclusive biopsy. 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 Imaging showed a decreased right upper lobe lesion (5.7cm), increased sagittal lesion (18mm), and a cavitary left upper lobe lesion. Despite recommendations, he continues smoking 4-5 cigarettes daily with a 65-year history. Laboratory results revealed hypokalemia (3.2 mEq/L). Shaq testing in conclusive , biopsy at [facility] negative , considering repeat PET scan, retesting for tuberculosis and coccidioidomycosis, and recommending potassium supplementation. Chief Complaint Follow-up for inconclusive biopsy results, ongoing evaluation of lung lesions History of Present Illness Mr. Jelani Anderson, a patient with a history of lung carcinoma diagnosed two years ago, presents for follow-up regarding a recent inconclusive biopsy and ongoing lung lesions. The patient has a complex history of lung cancer, with previous diagnoses of leiomyosarcoma in 2014 and squamous cell cancer in 2022. The patient's right upper lobe lesion has decreased from 6.2 to 5.7 cm, while a sagittal lesion has increased from 9 to 18 mm. A left upper lobe lesion has become cavitary. Mr. Rooney recently underwent a biopsy on 09-18-2024, which was inconclusive. He expresses frustration about the recent biopsy, stating that the physician missed the spot. Mr. Rooney continues to smoke 4-5 cigarettes daily, despite recommendations to quit. He reports a 65-year history of smoking, acknowledging that tobacco use was widely accepted when he was younger. The patient's long-term smoking habit has resulted in severe lung damage. Medical History - Lung carcinoma diagnosed two years ago - Cavitary mass in the right upper lobe identified in April 2024 - Squamous cell cancer diagnosed in 2022 - Leiomyosarcoma diagnosed in 2014 Surgical History - Biopsy in 2022 for squamous cell cancer - Biopsy in 2014 for leiomyosarcoma - Recent biopsy (September 18, 2024) with inconclusive results Medications and Supplements - Potassium - Low potassium level of 3.2 noted. Social History - Substance Use: Current smoker (4-5 cigarettes per day), long-term smoking habit for 65 years Laboratory, Imaging, and Diagnostic Test Results - CT scan (11/17/2024): Significant cavitary lesions - CT scan (date not specified): - Right upper lobe lesion: 5.7 cm (decreased from 6.2 cm) - Sagittal lesion: 18 mm (increased from 9 mm) - Left upper lobe lesion: Now cavitary - PET scan (date not specified): - Large cavitary right upper lobe lesion - Stable 17 mm lesion in the left upper lobe - Pathology (09/18/2024): Inconclusive - Hemoglobin: 12.5 g/dL - Potassium: 3.2 mEq/L (low) History of presenting illness Mr. Rooney has the following oncology history. September 2014: Mr. Rooney had excision biopsy of the lesion on the back of the chest wall on the right side. 01/2015: CT scan of the chest with IV contrast 02/05/2015: Radical reresection of the large (8 cm) right periscapular leiomyosarcoma. 03/18/2015 - 05/10/2015: Patient was treated with 7040 cGy radiation therapy to the right shoulder. 04/02/2016: Mr. Rooney had gastroscope and radial echo endoscopic study to evaluate compression of the prepyloric region. 11/04/2022: CT scan of the chest without IV contrast was obtained due to history of soft tissue sarcoma. 12/10/2022: Guided biopsy of the left lower lobe pulmonary mass? 01/18/2023?02/22/2023: Mr. Rooney is started on chemoradiation with weekly Taxol and carboplatin for stage IIIa disease. 03/23/2023: Mr. Rooney is started on adjuvant durvalumab. 05/26/2023: PET/CT scan 09/16/2023: PET/CT scan? 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 Rooney received weekly Taxol and carboplatin as radiosensitizing agents. 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 Rooney is allergic to MRI contrast. He had anaphylactic reaction in the past. DATE OF DIAGNOSIS: STAGE/TNM: TREATMENT HISTORY: Care?Plan Start?Date Cycle Day Intent Taxol?45?mg/m*2?+?Carbo?AUC?2?+?Concurrent?XRT 01/18/2023 1 7 Definitive DURValomab?10mg/kg 03/23/2023 1 14 Curative?(adjuvant) HISTORY OF PRESENT ILLNESS: OTHER MEDICAL HISTORY/CONDITIONS: COPD Sarcoma right shoulder - Dx 2014 BPH Septoplasty - 2014 Umbilical hernia repair - 2005 FAMILY HISTORY: Mother:?Thyroid?-?dx?60's Children:?Sister?-?Lung?-?80's SOCIAL HISTORY: Occupational?History:?Retired?- Education?Level:?College Graduate, 2 year degree Marital?Status:? Tobacco?Pack?per?Day:?1 Tobacco?Use?Years:?60 Tobacco?Use:?Quit?2?weeks?ago ETOH?Use:?Denies Drug?Note:?Denies Social?History?Note:?Lives?with? MEDICATIONS: 1. albuterol - 90 mcg/actuation As needed 2. multivitamin - 1 tab Daily 3. potassium chloride - 10 mEq 1 tab Daily 4. Trelegy Ellipta - 200-62.5-25 mcg 1 Puff(s) Daily 5. vitamin B complex - 1 tab Every other day 6. Vitamin C - 1,000 mg 1 tab Daily Medications Last Reconciled by Codi Hernandez MD on 01/04/2025 ALLERGIES: Gadolinium-Containing Contrast Media; Gadolinium-Containing Contrast Media; Gadolinium-Containing Contrast Media REVIEW OF SYSTEMS: A complete 14-point review of systems was performed and is negative except as noted in interval history. PHYSICAL EXAMINATION: VITAL SIGNS: Temperature?98.5, B/P?133/76, Oxygen?Saturation?95% Weight?153.7?lbs (Change?since?01/03/25:?0.7?lbs) PAIN: 0 - No pain EYE: Conjunctivae is white MOUTH: Oral cavity is moist CHEST: Clear to auscultation. No wheezes or rales audible. CARDIAC: Rhythm regular, no murmurs or gallops present. ABDOMEN: Soft. No hepatosplenomegaly. EXTREMITIES: No pedal edema or cyanosis. LABORATORY DATA: I have personally reviewed and interpreted each of the patient?s relevant lab tests, abnormal findings are below: Date 09/15/24 11/10/24 01/03/25 ??WHITE?BLOOD?COUNT?(Thou/mm3) 13.1?H 9.0 13.3?H ??RED?BLOOD?COUNT?(Miln/mm3) 4.19?L 4.33?L 4.39?L ??HEMOGLOBIN?(gm/dl) 12.5?L 13.1?L 13.1?L ??HEMATOCRIT?(%) 37.6?L 39.8?L 40.2?L ??PLATELET?COUNT?(Thou/mm3) 256 295 289 ??NEUTROPHILS?%,?AUTO?(%) 76 68 86?H ??LYMPH?%,?AUTO?(%) 11 15 6?L ??NEUTROPHILS,?AUTO?(Thou/mm3) 10.0?H 6.1 11.5?H ??GLUCOSE,RANDOM?(mg/dL) ? ? 115?H ??BLOOD?UREA?NITROGEN?(mg/dL) ? ? 10 ??CREATININE?(mg/dL) ? ? 1.10 ??SODIUM?(mmol/L) ? ? 141 ??POTASSIUM?(mmol/L) ? ? 4.0 ??CHLORIDE?(mmol/L) ? ? 103 ??CrCl?(CandG)?(ml/min) ? ? 50.82 ??AST/SGOT?(Unit/L) ? ? 13 ??ALT/SGPT?(Unit/L) ? ? <?7?L ??ALKALINE?PHOSPHATASE?(Unit/L) ? ? 111 ??BILIRUBIN,?TOTAL?(mg/dL) ? ? 0.7 ??PROTEIN?TOTAL?(gm/dl) ? ? 6.7 ??ALBUMIN,?SERUM?(gm/dl) ? ? 4.1 ??GLOBULIN?(gm/dl) ? ? 2.6 ??ALBUMIN/GLOBULIN?RATIO ? ? 1.6 ??CALCIUM,?SERUM?(mg/dL) ? ? 9.9 ??CALCIUM?SERUM?(CORRECTED)?(mg/dL) ? ? 9.9 ASSESSMENT/PLAN: #1 stage Illa (cT2b, N2, M0) squamous cell carcinoma of the right lung (12/10/2022). S/p S/p chemoradiation completed on 03/01/2023. Followed by durvalumab CT scan of the neck with and without contrast done on 10/13/2023 did not show any enhancing oropharyngeal mass. 04/06/[address] scan shows stable hypermetabolic mass in the left oropharyngeal region Large cavitary partially hypermetabolic mass in the right upper lobe 52 mm compared to 28 mm and stable 17 mm non-hypermetabolic cavitary mass left upper lobe. Biopsy shows caseating granuloma and negative for tuberculosis and any fungal elements and malignancy Patient has a history of lung carcinoma diagnosed two years ago. Recent imaging shows a right upper lobe lesion that decreased from 6.2 to 5.7 cm, a sagittal lesion that increased from 9 to 18 mm, and a left upper lobe lesion that is now cavitary. A biopsy performed on 09-18-2024 was inconclusive. Patient has a history of leiomyosarcoma (2014) and squamous cell cancer (2022). The most recent PET scan showed a large cavitary right upper lobe lesion and a stable 17 mm lesion in the left upper lobe. Given the inconclusive biopsy and the patient's history, further diagnostic workup is necessary to determine the nature of these lesions. Patient have 2 negative bisopies Will repeat scan in 2 [facility] Tobacco Use Disorder Assessment: Patient reports current tobacco use of 4-5 cigarettes per day. Long- term smoking history of 65 years has resulted in severe lung damage. Continued smoking poses significant risks, especially in the context of ongoing diagnostic procedures for lung lesions. Plan: - Strongly advise smoking cessation - Educate on the importance of avoiding smoking, especially during biopsy procedures Hypokalemia Assessment: Recent laboratory results show low potassium at 3.2. Plan: - Recommend potassium supplementation through diet or tabletsORDERS: Order # Description ORDERS: Order # Description [id number] QuantiFERON-TB Gold Plus ([facility] TEST:[id number] CPT: 95626) RETURN TO CLINIC: I reviewed the diagnosis, prognosis, and recommended treatment/procedure options with the patient (and/or their legal parts representative), including the potential benefits, risks, side effects and alternative therapies. We also discussed the option of no treatment and the possibility of clinical trial participation, if applicable. All questions were addressed, and they demonstrated understanding. They provided informed consent to proceed with the proposed plan of care. BILLING AND COMPLIANCE: I reviewed external records from providers outside my specialty as summarized above. I spent a total of 50 minutes on this patient?s care on the day of their visit excluding time spent related to any billed procedures. This time includes time spent with the patient as well as time spent documenting in the medical record, reviewing patients records and tests, obtaining history, placing orders, communicating with other healthcare professionals, counseling the patient, family or caregiver, and/or care coordination for the diagnoses above. Electronically Signed by: Yonny Scott MD T: 1:34 PM CC: PCP: Geovanna Samson Referring: Geovanna Samson This document was completed utilizing speech recognition software. Grammatical errors, random word insertions, pronoun errors, and incomplete sentences are an occasional consequence of this system due to software limitations, ambient noise, and hardware issues. Any formal questions or concerns about the content, text or information contained within the body of this dictation should be directly addressed to the provider for clarification.
== END 2025-01-21 23:59 | disposition home or self-care (01) ==
LOC: SCTC 14:19
PROVIDERS: PCP Family Medicine; Referring Provider Family Medicine; Visit Provider Internal Medicine Hematology & Oncology
DX: R91.8 Other nonspecific abnormal finding of lung field (principal); C34.31 Malignant neoplasm of lower lobe, right bronchus or lung; C44 Other and unspecified malignant neoplasm of skin; F17.210 Nicotine dependence, cigarettes, uncomplicated; E87.6 Hypokalemia; Z92.3 Personal history of irradiation; Z92.21 Personal history of antineoplastic chemotherapy; Z45.2 Encounter for adjustment and management of vascular access device
CPT/HCPCS: 96523; 99212; A4216; J1642; G0463